=== PATIENT | female | born 1970 | race Caucasian/White ===

== ENCOUNTER → 2020-06-13 10:30 | Outpatient (CLI) | payer BC, SELFPAY ==
--- NOTE | ~2020-06-13 | MR_ITS ---
EXAMINATION: MR shoulder LT wo con DATE: 06/13/2020 11:45 INDICATION: Left shoulder pain. TECHNIQUE: Magnetic resonance imaging (MRI) of the left shoulder was performed without intravenous co ntrast. Sequences included axial PD-weighted FS FSE, coronal oblique PD-weighted FS FSE and T2-weight ed FS FSE, and sagittal oblique T2-weighted FS FSE and T1-weighted FSE. COMPARISON: Left shoulder radiographs 05/26/2020 FINDINGS: Coracoacromial arch: The acromion undersurface is curved in morphology with anterior hook (type III). There is mild acromi oclavicular joint osteoarthritis. There is mild subacromial/subdeltoid bursitis. Rotator cuff: There is mild supraspinatus and infraspinatus tendinopathy. Teres minor tendon is normal. Subscapular is tendon is normal. No tear. There is bone marrow edema-like signal intensity in greater tuberosity, likely degenerative. There is no asymmetric fatty atrophy of the rotator cuff muscle bellies. Biceps tendon and glenoid labrum: Biceps tendon is in bicipital groove. Intra-articular biceps tendon is normal. The glenoid labrum is normal. Fluid: There is no glenohumeral joint effusion. Bones/cartilage: Glenoid cartilage is normal. The humeral head cartilage is normal. IMPRESSION: 1. Mild rotator cuff tendinopathy. No tear. 2. Mild acromioclavicular joint osteoarthritis. 3. Mild subacromial/subdeltoid bursitis. Reviewed, dictated and finalized at location A. [employer]
== END ==
PROVIDERS: PCP Family Medicine; Visit Provider Nurse Practitioner Family
DX: M19.012 Primary osteoarthritis, left shoulder (principal); M75.52 Bursitis of left shoulder
CPT/HCPCS: 73221

== ENCOUNTER → 2020-07-21 13:52 | Outpatient (CLI) | payer BC, SELFPAY ==
--- NOTE | ~2020-07-21 | MM_ITS ---
EXAMINATION: MM screening emil BI w dipesh HISTORY: Screening TECHNIQUE: Craniocaudal and mediolateral oblique 3-D tomosynthesis images were obtained and synthetic 2-D images were generated. CAD analysis was submitted and interpreted. COMPARISON: Comparison to multiple prior studies sequentially, with oldest reviewed study dated 02/16. BREAST PARENCHYMAL COMPOSITION: There are scattered areas of fibroglandular density. FINDINGS: There is no evidence of suspicious mass, calcification, or architectural distortion to sugg est malignancy in either breast. There has been no suspicious interval change. IMPRESSION: 1. No mammographic evidence of malignancy. 2. Recommend routine screening mammography in one year. BI-RADS Category 1: Negative Reviewed, dictated and finalized at location A. M [employer]ESS[employer]IST
== END ==
PROVIDERS: PCP Family Medicine; Visit Provider Physician Assistant
DX: Z12.31 Encounter for screening mammogram for malignant neoplasm of breast (principal)
CPT/HCPCS: 77063; 77067

== ENCOUNTER 2020-09-28 11:08 | Outpatient (CLI) | payer BC, SELFPAY ==
--- NOTE | ~2020-09-28 | US_ITS ---
EXAMINATION: US thyroid DATE: 09/28/2020 11:53 INDICATION: Goiter. TECHNIQUE: Multiple ultrasound images of the thyroid were obtained. COMPARISON: Ultrasound 07/27/2008 FINDINGS: The right thyroid lobe measures 2.2 x 1.1 x 1.2 cm. The left thyroid lobe measures 2.2 x 1.1 x 1.0 c m. The thyroid is diffusely heterogeneous and hypoechoic. Vascularity is normal. No discrete nodule. IMPRESSION: 1. Small, heterogeneous thyroid, likely chronic lymphocytic ([place]) thyroiditis. Reviewed, dictated and finalized at location A. IMPRESSION: 1. Small, heterogeneous thyroid, likely chronic lymphocytic ([place]) thyroid itis.
== END 2020-09-28 11:09 | disposition home or self-care (01) ==
PROVIDERS: PCP Family Medicine; Visit Provider Internal Medicine Endocrinology, Diabetes & Metabolism
DX: E04.9 Nontoxic goiter, unspecified (principal)
CPT/HCPCS: 76536

== ENCOUNTER 2020-10-20 08:20 | Outpatient (CLI) | payer BC, SELFPAY ==
--- NOTE | ~2020-10-20 | XR_ITS ---
EXAMINATION: XR barium swallow EXAM DATE: 10/20/2020 08:52 INDICATION: dysphagia, globus, odynophagia . TECHNIQUE: Standard thick followed by thin contrast barium esophagram examination was performed by Dr Melquiades Ortiz, radiologist. Pulsed dose reduction fluoroscopy was used with fluoroscopic time of 0.7 . The DAP for this procedure was 1.6 Gycm2. A total of 135 images obtained for the exam. There is no prior study for comparison. FINDINGS: The pharynx is symmetric and without evidence of mass lesion or mucosal irregularity. Ther e is no esophageal stricture or mass identified. There are no esophageal diverticula. There is small sliding gastroesophageal hiatal hernia. IMPRESSION: Small sliding gastroesophageal hiatal hernia. Reviewed, dictated and finalized at location A.
== END 2020-10-20 08:21 | disposition home or self-care (01) ==
PROVIDERS: PCP Family Medicine; Visit Provider Internal Medicine Gastroenterology
DX: R13.10 Dysphagia, unspecified (principal); R19.8 Other specified symptoms and signs involving the digestive system and abdomen; K44.9 Diaphragmatic hernia without obstruction or gangrene
CPT/HCPCS: 74220

== ENCOUNTER → 2021-09-13 16:49 | Outpatient (CLI) | payer BC, SELFPAY ==
--- NOTE | ~2021-09-13 | MM_ITS ---
EXAMINATION: MM screening emil BI w dipesh HISTORY: Screening mammogram TECHNIQUE: Craniocaudal and mediolateral oblique 3-D tomosynthesis images were obtained and synthetic 2-D images were generated. CAD analysis was submitted and interpreted. COMPARISON: 07/13/2020 bilateral screening mammogram 02/23/2016 diagnostic right mammogram and limited right breast ultrasound 02/17/2016 bilateral screening mammogram BREAST PARENCHYMAL COMPOSITION: The breasts are almost entirely fatty. FINDINGS: There is no evidence of suspicious mass, calcification, or architectural distortion to sugg est malignancy in either breast. There has been no suspicious interval change. IMPRESSION: 1. No mammographic evidence of malignancy. 2. Recommend routine screening mammography in one year. BI-RADS Category 1: Negative Reviewed, dictated and finalized at location A.
== END ==
PROVIDERS: PCP Family Medicine; Visit Provider Student in an Organized Health Care Education/Training Program
DX: Z12.31 Encounter for screening mammogram for malignant neoplasm of breast (principal)
CPT/HCPCS: 77063; 77067

== ENCOUNTER 2022-09-06 07:23 | Outpatient (CLI) | payer BC, SELFPAY ==
--- NOTE | ~2022-09-06 | MR_ITS ---
MRI of the cervical spine Clinical History: Neck pain Technique: Axial T2-weighted and gradient images, and sagittal T1-weighted, T2-weighted, and STIR kofi ges were acquired. Findings: There is no fracture or subluxation of the cervical spine. Vertebral bodies maintain normal height and alignment. No bone marrow signal abnormality identified. No significant disc bulge or herniation seen at any cervical level. There is no spinal canal stenosis , cord compression, or neural foraminal narrowing in the cervical spine. No epidural mass or collecti on is seen. No abnormal signal seen in the spinal cord. Paravertebral soft tissues are unremarkable. Impression: No significant abnormality. Reviewed, dictated and finalized at location . Impression: No significant abnormality.
--- NOTE | ~2022-09-06 | XR_ITS ---
Left Knee Technique: AP and lateral views were obtained. Clinical History: Joint pain Findings: No fracture or dislocation is seen. Osseous alignment is anatomic. There is osteophyte form ation at the lateral joint line. Chondrocalcinosis of the menisci noted. No joint effusion is seen. Impression: Mild degenerative change, as above. Chondrocalcinosis of the menisci. Reviewed, dictated and finalized at location . Impression: Mild degenerative change, as above. Chondrocalcinosis of the menisci.
--- NOTE | ~2022-09-06 | XR_ITS ---
AP and lateral views of the right hip Clinical history: Pain Findings: No acute fracture or dislocation is seen. Osseous alignment is anatomic. The right hip join t and right SI joint are preserved. Mild to moderate osteitis pubis noted. Soft tissues are unremarka ble. Impression: [id number] osteitis pubis, otherwise unremarkable exam. Reviewed, dictated and finalized at location M. Impression: [id number] osteitis pubis, otherwise unremarkable exam.
--- NOTE | ~2022-09-06 | XR_ITS ---
AP and lateral views of the left hip Clinical history: Pain Findings: No acute fracture or dislocation is seen. Osseous alignment is anatomic. The left hip and l eft SI joint are preserved. Osteoarthritis pubis noted. Soft tissues are unremarkable. Impression: Moderate osteitis pubis, otherwise unremarkable exam. Reviewed, dictated and finalized at location . Impression: Moderate osteitis pubis, otherwise unremarkable exam.
--- NOTE | ~2022-09-06 | XR_ITS ---
EXAMINATION: XR wrist LT 2V, XR wrist RT 2V, XR hand LT 2V, XR hand RT 2V DATE: 09/06/2022 09:39 EXAMINATION: XR wrist LT 2V, XR wrist RT 2V, XR hand LT 2V, XR hand RT 2V DATE: 09/06/2022 09:39 INDICATION: Multiple joint pain TECHNIQUE: 1. Posteroanterior and lateral views of the left wrist were obtained. 2. Dorsal palmar and lateral views of the left hand were obtained. 3. Posteroanterior and lateral views of the right wrist were obtained. 4. Dorsal palmar and lateral views of the right hand were obtained. COMPARISON: None. FINDINGS: Alignment of the bilateral hands and wrists is normal. No fracture identified. Minimal to mild osteo arthritis at the bilateral distal radioulnar, right triscaphe, bilateral first carpometacarpal and a few bilateral interphalangeal joints. No erosions to suggest inflammatory arthritis. Soft tissues are unremarkable. IMPRESSION: 1. Symmetric typical distribution of minimal to mild polyarticular osteoarthritis at the bilateral zafar nds and wrists. No erosions to suggest an inflammatory arthritis. Reviewed, dictated and finalized at location L. IMPRESSION: 1. Symmetric typical distribution of minimal to mild polyarticular osteoarthrit is at the bilateral hands and wrists. No erosions to suggest an inflammatory ar thritis. IMPRESSION: 1. Symmetric typical distribution of minimal to mild polyarticular osteoarthrit is at the bilateral hands and wrists. No erosions to suggest an inflammatory ar thritis. IMPRESSION: 1. Symmetric typical distribution of minimal to mild polyarticular osteoarthrit is at the bilateral hands and wrists. No erosions to suggest an inflammatory ar thritis.
--- NOTE | ~2022-09-06 | XR_ITS ---
EXAMINATION: XR foot LT 2V, XR ankle RT 2V, XR foot RT 2V, XR ankle LT 2V DATE: 09/06/2022 09:39 INDICATION: Multiple joint pain TECHNIQUE: 1. Anteroposterior and lateral view of the left ankle were obtained. 2. Dorsoplantar and lateral views of the left foot were obtained. 3. Anteroposterior and lateral view of the right ankle were obtained. 4. Dorsoplantar and lateral views of the right foot were obtained. COMPARISON: Left foot radiographs dated 05/14/2016 FINDINGS: Alignment of the bilateral feet and ankles is normal. No fracture or osteochondral lesion. Relatively symmetric minimal to mild polyarticular osteoarthritis throughout multiple joints in the bilateral f eet. No erosions to suggest inflammatory arthritis. No ankle joint effusions. Also symmetric small bi lateral plantar calcaneal spurs with minimal enthesopathic calcification/ossification at the proximal plantar aponeuroses and at the distal Achilles tendons. The soft tissues are unremarkable. IMPRESSION: 1. Minimal to mild polyarticular osteoarthritis at the bilateral feet. No erosions to suggest inflamm atory arthritis. 2. Enthesopathic change at the bilateral calcaneal insertions of the Achilles tendons and plantar apo neuroses. Reviewed, dictated and finalized at location L. IMPRESSION: 1. Minimal to mild polyarticular osteoarthritis at the bilateral feet. No erosi ons to suggest inflammatory arthritis. 2. Enthesopathic change at the bilateral calcaneal insertions of the Achilles t endons and plantar aponeuroses. IMPRESSION: 1. Minimal to mild polyarticular osteoarthritis at the bilateral feet. No erosi ons to suggest inflammatory arthritis. 2. Enthesopathic change at the bilateral calcaneal insertions of the Achilles t endons and plantar aponeuroses. IMPRESSION: 1. Minimal to mild polyarticular osteoarthritis at the bilateral feet. No erosi ons to suggest inflammatory arthritis. 2. Enthesopathic change at the bilateral calcaneal insertions of the Achilles t endons and plantar aponeuroses.
--- NOTE | ~2022-09-06 | XR_ITS ---
Right Knee Technique: AP and lateral views were obtained. Clinical History: Joint pain Findings: No fracture or dislocation is seen. Osseous alignment is anatomic. Mild tricompartment oste ophyte formation is present, worst at the lateral joint line.. Chondrocalcinosis of the menisci noted . No joint effusion is seen. Impression: Degenerative change, as above. Chondrocalcinosis of the menisci. Reviewed, dictated and finalized at location M. Impression: Degenerative change, as above. Chondrocalcinosis of the menisci.
--- NOTE | ~2022-09-06 | MR_ITS ---
MRI of the lumbar spine Clinical History: Back pain Technique: Axial T2-weighted images, and sagittal T1-weighted, T2-weighted, and T2 fat-sat images wer e acquired. Findings: There is no fracture or subluxation of the lumbar spine. Vertebral bodies maintain normal h eight and alignment. No bone marrow signal abnormality seen. At L1-L2 and L2-L3, there is no disc bulge or herniation. There is moderate to advanced facet arthrop athy at these levels. No spinal canal stenosis or neural foraminal narrowing at these levels. At L3-L4, there is mild diffuse disc bulge with facet arthropathy. No spinal canal stenosis. There is minimal bilateral neural foraminal narrowing. At L4-L5, there is minimal disc bulge with facet arthropathy. No spinal canal stenosis. There is mini mal bilateral neural foraminal narrowing. At L5-S1, there is no disc bulge or herniation. There is minimal facet joint degenerative change. No spinal canal stenosis or neural foraminal narrowing. Impression: Mild degenerative spondylosis, as detailed above. No fracture or subluxation. Reviewed, dictated and finalized at [facility]. Impression: Mild degenerative spondylosis, as detailed above. No fracture or subluxation.
--- NOTE | ~2022-09-06 | XR_ITS ---
Left Shoulder Technique: AP internal and external rotation views were obtained. Clinical History: Pain Findings: No fracture or dislocation is seen. Osseous alignment is anatomic. The glenohumeral and acr omioclavicular joint spaces are preserved. Soft tissues are unremarkable. Impression: Unremarkable left shoulder radiographs. Reviewed, dictated and finalized at [facility]. Impression: Unremarkable left shoulder radiographs.
--- NOTE | ~2022-09-06 | XR_ITS ---
Right Shoulder Technique: AP internal and external rotation views were obtained. Clinical History: Pain Findings: No fracture or dislocation is seen. Osseous alignment is anatomic. The glenohumeral and acr omioclavicular joint spaces are preserved. Soft tissues are unremarkable. Impression: Unremarkable right shoulder radiographs. Reviewed, dictated and finalized at [facility]. Impression: Unremarkable right shoulder radiographs.
--- NOTE | ~2022-09-06 | XR_ITS ---
EXAMINATION: XR elbow RT 2V DATE: 09/06/2022 09:39 INDICATION: Multiple joint pain TECHNIQUE: Anteroposterior and lateral views of the right elbow were obtained. COMPARISON: None. FINDINGS: Alignment is normal. No fracture or joint effusion. Joint spaces are normal. Soft tissues are unremar kable. IMPRESSION: 1. Negative right elbow radiographs. Reviewed, dictated and finalized at location L.
--- NOTE | ~2022-09-06 | XR_ITS ---
EXAMINATION: XR elbow LT 2V DATE: 09/06/2022 09:39 INDICATION: Multiple joint pain TECHNIQUE: Anteroposterior and lateral views of the left elbow were obtained. COMPARISON: None. FINDINGS: Alignment is normal. Tiny likely dystrophic calcification along the rim of the articular surface of t he left radial head without evident donor site or joint effusion to suggest fracture. Joint spaces ar e normal. No erosions. Soft tissues are unremarkable. IMPRESSION: 1. Tiny likely dystrophic calcification near the radial head of doubtful clinical significance. Other love normal left elbow radiographs. Reviewed, dictated and finalized at location L. IMPRESSION: 1. Tiny likely dystrophic calcification near the radial head of doubtful clinic al significance. Otherwise normal left elbow radiographs.
== END 2022-09-06 07:24 ==
PROVIDERS: PCP Family Medicine; Visit Provider Internal Medicine Rheumatology
DX: M86.9 Osteomyelitis, unspecified (principal); M17.0 Bilateral primary osteoarthritis of knee; M19.041 Primary osteoarthritis, right hand; M19.042 Primary osteoarthritis, left hand; M19.031 Primary osteoarthritis, right wrist; M19.032 Primary osteoarthritis, left wrist; M19.071 Primary osteoarthritis, right ankle and foot; M19.072 Primary osteoarthritis, left ankle and foot; M47.896 Other spondylosis, lumbar region
CPT/HCPCS: 72141; 72148; 73030; 73070; 73100; 73120; 73502; 73560; 73600; 73620